=== PATIENT | female | born 1955 | race Caucasian/White ===

== ENCOUNTER 2019-06-13 12:12 | Emergency (ER) | payer OTHER ==
[~2019-06-13] VITALS: Ht 160 cm; Wt 67.1 kg
[2019-06-13 12:50] VITALS: BP 144/95; Ht 160 cm; Wt 67.1 kg
== END 2019-06-13 15:41 | disposition home or self-care (01) ==
LOC: ED 12:12
DX: R51 Headache (principal); H53.149 Visual discomfort, unspecified; I10 Essential (primary) hypertension; E03.9 Hypothyroidism, unspecified; K74.60 Unspecified cirrhosis of liver; Z90.710 Acquired absence of both cervix and uterus; Z87.442 Personal history of urinary calculi; Z91.010 Allergy to peanuts